=== PATIENT | female | born 1985 | race Caucasian/White ===

== ENCOUNTER → 2017-04-09 | Outpatient (CLI) | payer OTHER ==
[~2017-04-09] MED LIST: HYDR25TA11 PO; IBUP-1222 PO; PREN1TAB27 PO; TRAZ100T15 PO; iron PO
[2017-04-09 10:27] LABS: BLOOD UREA NITROGEN 11 mg/dL (7-18)
[2017-04-09 10:32] LABS: ASPARTATE AMINO TRANSFERASE 14 U/L (15-37)
== END | disposition home or self-care (01) ==
LOC: STAR 08:24
PROVIDERS: ATTEND Obstetrics & Gynecology
DX: Z30.2 Encounter for sterilization (principal); D25.9 Leiomyoma of uterus, unspecified
CPT/HCPCS: 36415; 80053; 84703; 85025; 93005

== ENCOUNTER 2017-04-13 07:05 | Observation (INO) | payer OTHER ==
[2017-04-09 14:44] VITALS: BP 109/74
[~2017-04-13] VITALS: Ht 162.6 cm; Wt 64.9 kg
[2017-04-13] MEDS ORDERED: LACTATED RINGERS 1,000 ML IV SCH (07:40)
[2017-04-13] MEDS ORDERED: LIDOCAINE 1%, 2ML SQ PRN (08:00)
[2017-04-13 08:23] LABS: HCG UR OBC PASS
[2017-04-13] MEDS ORDERED: MIDAZOLAM 1 MG/ML, 2ML ONE (08:39)
[2017-04-13] MEDS ORDERED: FENTANYL PF 250 MCG/5ML ONE (08:39)
[2017-04-13] MEDS ORDERED: ACETAMINOPHEN 325 MG TABLET PO PRN (09:30)
[2017-04-13] MEDS ORDERED: METOCLOPRAMIDE 5 MG/ML, 2ML IV PRN (09:30)
[2017-04-13] MEDS ORDERED: PROMETHAZINE 25 MG/ML, 1ML IV PRN (09:30)
[2017-04-13] MEDS ORDERED: ONDANSETRON 2MG/ML, 2ML IVPush PRN ×2 (09:30→12:00)
[2017-04-13] MEDS ORDERED: OXYcodone 5 MG/5 ML ORAL.SOL UDC PO PRN (09:30)
[2017-04-13] MEDS ORDERED: PROPOFOL 10 MG/ML, 20ML ONE (09:45)
[2017-04-13] MEDS ORDERED: NEOSTIGMINE 1 MG/ML, 10ML ONE (09:45)
[2017-04-13] MEDS ORDERED: CEFAZOLIN 1,000 MG ONE (09:45)
[2017-04-13] MEDS ORDERED: DEXAMETHASONE 4 MG/ML, 1ML ONE (09:45)
[2017-04-13] MEDS ORDERED: ROCURONIUM 10 MG/ML ONE (09:45)
[2017-04-13] MEDS ORDERED: ONDANSETRON 2MG/ML, 2ML ONE (09:45)
[2017-04-13] MEDS ORDERED: GLYCOPYRROLATE 0.2MG/1ML ONE (09:45)
[2017-04-13] MEDS ORDERED: HYDROmorphone 1 MG/ML, 1ML ONE (11:38)
[2017-04-13] MEDS ORDERED: OXYcodone 5 MG/5 ML ORAL.SOL UDC ONE (11:38)
[2017-04-13] MEDS ORDERED: FENTANYL PF 100 MCG/2ML ONE (11:38)
[2017-04-13] MEDS: FENTANYL PF 100 MCG/2ML IV PRN ×2 (11:41→11:50)
[2017-04-13] MEDS ORDERED: HYDROmorphone 2 MG/ML, 1ML IVPush PRN (12:00)
[2017-04-13] MEDS: HYDROmorphone 1 MG/ML, 1ML IV PRN ×2 (12:07→12:15)
[2017-04-13] MEDS: SIMETHICONE 80 MG CHEW TAB PO SCH ×2 (15:37→20:29)
[2017-04-13] MEDS: OXYcodone/APAP 5/325MG TABLET PO PRN ×2 (15:37→20:30)
[2017-04-13] MEDS: LACTATED RINGERS 1,000 ML IV SCH (18:41)
[2017-04-13 19:00] VITALS: BP 89/52
[2017-04-13] MEDS: DOCUSATE 100 MG CAPSULE PO SCH (20:29)
[2017-04-13] MEDS: KETOROLAC 30 MG/1 ML IVPush PRN (20:30)
[2017-04-13] MEDS ORDERED: TRAZODONE 100MG TABLET PO SCH (21:00)
[2017-04-13 23:40] VITALS: BP 98/60
[2017-04-14] MEDS: OXYcodone/APAP 5/325MG TABLET PO PRN ×6 (00:48→19:43)
[2017-04-14] MEDS: LACTATED RINGERS 1,000 ML IV SCH ×3 (01:56→19:30)
[2017-04-14] MEDS: KETOROLAC 30 MG/1 ML IVPush PRN (03:24)
[2017-04-14 03:41] VITALS: BP_SYST 143; BP_SYST 91; BP_DIAS 49; BP_DIAS 70
[2017-04-14] MEDS: SIMETHICONE 80 MG CHEW TAB PO SCH ×3 (08:15→19:42)
[2017-04-14] MEDS: DOCUSATE 100 MG CAPSULE PO SCH ×2 (08:15→19:43)
[2017-04-14 08:16] VITALS: BP 102/67
[2017-04-14] MEDS ORDERED: HYDROmorphone 2 MG/ML, 1ML IM PRN (11:00)
[2017-04-14] MEDS: IBUPROFEN 600 MG TABLET PO SCH ×3 (11:22→19:42)
[2017-04-14 13:04] VITALS: BP 103/66
[2017-04-14 18:51] VITALS: BP 98/63
== END 2017-04-14 22:44 | disposition home or self-care (01) ==
LOC: ORIP 07:05 → INTOOBSV 07:05 → EDSTATUS 09:30 → 4NOR 13:48
PROVIDERS: ADMIT Obstetrics & Gynecology; ATTEND Obstetrics & Gynecology
DX: D25.2 Subserosal leiomyoma of uterus (principal); N92.0 Excessive and frequent menstruation with regular cycle; F32.9 Major depressive disorder, single episode, unspecified
CPT/HCPCS: 36415; 58140; 58700; 81025; 85025; 86850; 86900; 88304; 96374; 96375; 96376; G0378; J0690; J1100; J1170; J1885; J2250; J2405; J2704; J2710; J3010; J3490; J7120; Q0177